=== PATIENT | male | born 1990 | race Caucasian/White ===

== ENCOUNTER 2018-02-11 14:03 | Emergency (ER) | payer BC, OTHER ==
[~2018-02-11] VITALS: Ht 188 cm; Wt 105.0 kg
[~2018-02-11 14:03] MED LIST: ARIP1TAB46 PO; COZA50TA PO; FLUO20TA20 PO; MOBI15TA PO
[2018-02-11 14:08] VITALS: PULSE 83; RESP 22; TEMP 97.4; O2SAT 99
[2018-02-11 14:57] LABS: AUTOMATED NEUTROPHIL # 6.1 TH/MM3 (1.8-7.7); BASOPHIL % 0.4 % (0.0-2.0); EOSINOPHIL # 0.1 TH/MM3 (0-0.4); EOSINOPHIL % 1.1 % (0.0-4.0); HEMATOCRIT 40.8 % (39.0-51.0); HEMOGLOBIN 14.1 GM/DL (13.0-17.0); LYMPH % 32.4 % (9.0-44.0); LYMPHOCYTE # 3.3 TH/MM3 (1.0-4.8); MEAN CELL VOLUME 86.3 FL (80.0-100.0); MEAN CORPUSCULAR HEMOGLOBIN 29.9 PG (27.0-34.0); MEAN CORPUSCULAR HGB CONC 34.6 % (32.0-36.0); MEAN PLATELET VOLUME 7.8 FL (7.0-11.0); MONO % 7.2 % (0.0-8.0); MONOCYTE # 0.7 TH/MM3 (0-0.9); NEUT % 58.9 % (16.0-70.0); PLATELET COUNT 298 TH/MM3 (150-450); RED BLOOD COUNT 4.72 MIL/MM3 (4.50-5.90); RED CELL DISTRIBUTION WIDTH 12.9 % (11.6-17.2); WHITE BLOOD COUNT 10.3 TH/MM3 (4.0-11.0)
[2018-02-11 15:21] VITALS: BP_SYST 115; BP_SYST 120; BP_DIAS 76; BP_DIAS 81; PULSE 81; RESP 17; O2SAT 97
[2018-02-11 15:21] LABS: BICARBONATE 26.6 MEQ/L (21.0-32.0); BLOOD UREA NITROGEN 22 MG/DL (7-18); CALCIUM 9.3 MG/DL (8.5-10.1); CHLORIDE 104 MEQ/L (98-107); CREATININE 0.88 MG/DL (0.60-1.30); GLOMERULAR FILTRATION RATE 106 ML/MIN (>89); GLUCOSE,RANDOM 77 MG/DL (74-106); SODIUM (NA) 140 MEQ/L (136-145)
[2018-02-11] MEDS ORDERED: LOSA50TA PO (15:21)
[2018-02-11] MEDS ORDERED: CYMB30CA PO (15:21)
[2018-02-11 15:54] LABS: TROPONIN I LESS THAN 0.02 NG/ML (0.02-0.05)
--- NOTE | 2018-02-11 15:54 | RADRPT ---
EXAM DATE: 02/11/2018 3:51 PM EDT AGE/SEX: 27 years / Male INDICATIONS: Pressure in chest and short of breath since earlier today CLINICAL DATA: This is the patient's initial encounter. Patient reports that signs and symptoms have been present for 1 day and indicates a pain score of 8/10. MEDICAL/SURGICAL HISTORY: . Marfan Syndromepleurisy . rods in entire spine COMPARISON: No prior [facility] exams available for comparison. FINDINGS: PA and lateral views of the chest demonstrate the lungs to be symmetrically aerated withou t evidence of mass, infiltrate or effusion. The cardiomediastinal contours are unremarkable. There is evidence of previous thoracic spinal surgery. There is scoliosis with curvature of the upper thoraci c spine to the left. The bony structures and hardware appear to be grossly intact. CONCLUSION: No acute pulmonary infiltrates. Electronically signed by: Hamilton Calloway MD 02/11/2018 3:53 PM EDT
[2018-02-11] MEDS ORDERED: IOHEXOL 350 MG/ML 10 ML VIAL (for RAD DIAG) IVCONTRAST ONE (16:18)
--- NOTE | 2018-02-11 16:58 | PD ---
HPI Chief Complaint: Respiratory Symptoms Time Seen by Provider: 15:16 Travel History International Travel<30 days: No Contact w/Intl Traveler<30days: No Traveled to known affect area: No History of Present Illness HPI 27-year-old male that presents to the ED for evaluation of right-sided chest pain and shortness of breath. Patient has had this for since this morning. Per patient he woke up with the discomfort and shortness of breath. Per patient he does have a history of asthma as well as Marfan syndrome. Per patient does not feel like his asthma. He has had pain like this before and he was told that he had pleurisy. Mainly his family and himself are concerned about his Marfan syndrome causing the pain and the concern for aneurysm. Per patient the pain is not severe and is more like a pressure and it is uncomfortable. He denies any abdominal pain. No nausea or vomiting. No recent travel. No injuries. States that the discomfort is 7 out of 10. Gets worse with deep breaths. Allergies to different medications. Has not seen anybody for this. Nothing alleviates the pain. PFSH Past Medical History ADHD: No Asthma: Yes Autoimmune Disease: No Blood Disorders: No Weight (Kg): 3 Anxiety: Yes Depression: Yes Heart Rhythm Problems: No Cancer: No Cardiomyopathy: Yes Cardiovascular Problems: Yes (HTN) High Cholesterol: No Chemotherapy: No Chest Pain: Yes Congestive Heart Failure: No COPD: No Diabetes: No Diminished Hearing: No Endocrine: No Gastrointestinal Disorders: Yes (GASTROPARESIS) Genitourinary: No Headaches: Yes Hypertension: Yes Immune Disorder: No Implanted Vascular Access Dvce: Yes Musculoskeletal: Yes (MARFANS SYNDRONE) Neurologic: Yes (DURALECTASIA) Psychiatric: Yes (depression) Reproductive: No Immunizations Current: Yes Migraines: No Radiation Therapy: No Seizures: No Sleep Apnea: Yes (occasionally wears Bi PAP) Thyroid Disease: No Ulcer: No Tetanus Vaccination: < 5 Years Influenza Vaccination: No Past Surgical History Appendectomy: No Body Medical Devices: spinal rods Section: No Cholecystectomy: No Neurologic Surgery: Yes (SPINAL FUSION X2) Thoracic Surgery: Yes (RIB CAGE SURGERY) Other Surgery: Yes (RIGHT ARM) Social History Alcohol Use: Yes (OCCASIONALLY) Tobacco Use: No Substance Use: No Allergies-Medications (Allergen,Severity, Reaction): Coded Allergies: lidocaine (Unverified Allergy, Severe, HIVES, 02/11/18) codeine (Unverified Adverse Reaction, Severe, PSYCHOSIS , 02/11/18) dicyclomine (Unverified Adverse Reaction, Severe, Hallucinations, 02/11/18) metoclopramide (Unverified Adverse Reaction, Severe, PARANOIA IV ONLY, ) Reported Meds & Prescriptions Reported Meds & Active Scripts Active Azithromycin 250 Mg Tab 250 Mg PO DIRECTED Take 2 tabs (500 mg) on day 1 then 1 tab daily x [address] (Diclofenac Sodium) 75 Mg Tabdr 75 Mg PO BID PRN Reported Losartan (Losartan Potassium) 50 Mg Tab 50 Mg PO DAILY Cymbalta DR (Duloxetine HCl) 30 Mg Capdr 90 Mg PO DAILY Review of Systems Except as stated in HPI: all other systems reviewed are Neg Physical Exam Narrative GENERAL: SKIN: Warm and dry. HEAD: Atraumatic. Normocephalic. EYES: Pupils equal and round. No scleral icterus. No injection or drainage. ENT: No nasal bleeding or discharge. Mucous membranes pink and moist. Tongue is midline. No uvula deviation. NECK: Trachea midline. No JVD. CARDIOVASCULAR: Regular rate and rhythm. No murmurs, S3, S4. RESPIRATORY: No accessory muscle use. Clear to auscultation. Breath sounds equal bilaterally. GASTROINTESTINAL: Abdomen soft, non-tender, nondistended. Hepatic and splenic margins not palpable. MUSCULOSKELETAL: Extremities without clubbing, cyanosis, or edema. No obvious deformities. Full range of motion of the upper and lower extremities bilaterally. 2+ pulses bilaterally. NEUROLOGICAL: Awake and alert. No obvious cranial nerve deficits. Motor grossly within normal limits. Five out of 5 muscle strength in the arms and legs. Normal speech. PSYCHIATRIC: Appropriate mood and affect; insight and judgment normal. Data Data Last Documented VS Vital Signs Date Time Temp Pulse Resp B/P (MAP) Pulse Ox O2 Delivery O2 Flow Rate FiO2 02/11/18 17:24 78 17 126/88 (101) 98 Room Air 02/11/18 14:08 97.4 Orders Orders Electrocardiogram (02/11/18 14:17) Complete Blood Count With Diff (02/11/18 14:17) Basic Metabolic Panel (Bmp) (02/11/18 14:17) Chest, Pa & Lat (02/11/18 14:17) Ckmb (Isoenzyme) Profile (02/11/18 14:26) Troponin I (02/11/18 14:26) Cta Thor Abd Aorta W Iv C W3d (02/11/18 ) Ed Discharge Order (02/11/18 17:38) Labs Laboratory Tests Test 02/11/18 14:26 White Blood Count 10.3 TH/MM3 Red Blood Count 4.72 MIL/MM3 Hemoglobin 14.1 GM/DL Hematocrit 40.8 % Mean Corpuscular Volume 86.3 FL Mean Corpuscular Hemoglobin 29.9 PG Mean Corpuscular Hemoglobin Concent 34.6 % Red Cell Distribution Width 12.9 % Platelet Count 298 TH/MM3 Mean Platelet Volume 7.8 FL Neutrophils (%) (Auto) 58.9 % Lymphocytes (%) (Auto) 32.4 % Monocytes (%) (Auto) 7.2 % Eosinophils (%) (Auto) 1.1 % Basophils (%) (Auto) 0.4 % Neutrophils # (Auto) 6.1 TH/MM3 Lymphocytes # (Auto) 3.3 TH/MM3 Monocytes # (Auto) 0.7 TH/MM3 Eosinophils # (Auto) 0.1 TH/MM3 Basophils # (Auto) 0.0 TH/MM3 CBC Comment DIFF FINAL Differential Comment Blood Urea Nitrogen 22 MG/DL Creatinine 0.88 MG/DL Random Glucose 77 MG/DL Calcium Level 9.3 MG/DL Sodium Level 140 MEQ/L Potassium Level 3.6 MEQ/L Chloride Level 104 MEQ/L Carbon Dioxide Level 26.6 MEQ/L Anion Gap 9 MEQ/L Estimat Glomerular Filtration Rate 106 ML/MIN Total Creatine Kinase 85 U/L Troponin I LESS THAN 0.02 NG/ML MDM Medical Decision Making Medical Screen Exam Complete: Yes Emergency Medical Condition: Yes Medical Record Reviewed: Yes Interpretation(s) EKG shows sinus bradycardia but no sign of acute ischemia and arrhythmia read by me and attending. Troponin and CK-MB negative. CBC & BMP Diagram 02/11/18 14:26 Calcium Level 9.3 Last Impressions Chest X-Ray 02/11/18 1417 Signed Impressions: CONCLUSION: No acute pulmonary infiltrates. Aorta CTA 02/11/18 0000 Signed Impressions: CONCLUSION: aorta CTA negative Differential Diagnosis Chest pain versus atypical chest pain versus aneurysm versus PE versus pleurisy versus ACS Narrative Course 27-year-old male that presents to the ED for evaluation of right-sided chest pain. Patient was properly examined and was found to have signs and symptoms concerning for significant disease. Patient does have a history of Marfan syndrome and there is concern for aneurysm secondary to the patient's symptoms. CTA and labs were ordered. My attending Dr. Rubi agrees with this. Labs and imaging show essentially unremarkable disease. Patient was reassured. Likely pleurisy. Per patient he feels similar to his previous episode. My attending doctor who recommends trial of anti-inflammatories and follow-up outpatient. I added azithromycin to his prescription to cover for bacterial infection although I told the family to not use unless his symptoms worsen. Patient understands reasons to come back. Follow-up with PCP. See ED if worsening symptoms. Diagnosis Primary Impression: Pleurisy Patient Instructions: General Instructions Additional Instructions: Take medication as prescribed. Follow-up with PCP. See ED if worsening symptoms. Ice or warm compresses. Take it easy for the next couple days. Med/Other Pt SpecificInfo: Prescription(s) given Scripts Azithromycin (Azithromycin) 250 Mg Tab 250 MG PO DIRECTED for Infection, #6 TAB 0 Refills Take 2 tabs (500 mg) on day 1 then 1 tab daily x 4 days. Prov: Alla Rubi MD 02/11/18 Diclofenac Sodium (Diclofenac Sodium ) 75 Mg Tabdr 75 MG PO BID Y for PAIN SCALE 1 TO 10, #20 TAB 0 Refills Prov: Alla Rubi MD 02/11/18 Disposition: 01 DISCHARGE HOME Condition: Stable Trino Trimble February 11, 2018 16:57
[2018-02-11 17:24] VITALS: BP 126/88; PULSE 78; RESP 17; O2SAT 98
--- NOTE | 2018-02-11 17:27 | RADRPT ---
EXAM DATE: 02/11/2018 5:08 PM EDT AGE/SEX: 27 years / Male INDICATIONS: Shortness of breath and chest pressure. CLINICAL DATA: This is the patient's initial encounter. Patient reports that signs and symptoms have been present for 1 day and indicates a pain score of 2/10. MEDICAL/SURGICAL HISTORY: Hypertension. Asthma. Marfans syndrome . Scoliosis surgery RADIATION DOSE: 17.10 CTDI (mGy) COMPARISON: No prior [facility] exams available for comparison. TECHNIQUE: Volumetric scanning was performed using a multi-row detector CT scanner during bolus infu maulik of 80 ml Omnipaque 350 (iohexol) nonionic water-soluble contrast as a single exam dose. The da ta was post processed with a variety of visualization algorithms including full volume maximum intens ity projection, multi-planar sliding thin slab reformation, curved planar reformation, and surface re ndering techniques. Using automated exposure control and adjustment of the mA and/or kV according to patient size, radiation dose was kept as low as reasonably achievable to obtain optimal diagnostic q uality images. FINDINGS: LUNGS: There is no consolidation or pneumothorax. No concerning pulmonary nodule is visualized. No pleural fluid is present. MEDIASTINUM: No abnormally enlarged lymph nodes by CT criteria. No axillary or hilar abnormalities a re identified. ABDOMEN: The liver and spleen are free of focal defects. The gallbladder and pancreas demonstrate no abnormality. The adrenal glands are normal. The kidneys demonstrate no evidence of solid renal mass or hydronephrosis. No free fluid or abdominal masses are identified. No para-aortic adenopathy is see n. PELVIS: No evidence of free fluid or pelvic mass. No abnormally enlarged inguinal or retroperitoneal lymph nodes are present. The bladder is unremarkable. THORACIC AORTA: Aortic root is upper limits of normal diameter. The remainder of the thoracic aorta is unremarkable with no evidence of stenosis, aneurysm or dissection. The arch vessels are normal in appearance with classical anatomy. ABDOMINAL AORTA: The aorta is normal in caliber without aneurysm or dissection. The renal arteries are patent bilaterally. The proximal celiac and superior mesenteric arteries are patent and normal i n diameter. PELVIC VESSELS: The internal iliac and external iliac vessels are patent without aneurysm or stenosi s. CONCLUSION: No acute vascular findings Electronically signed by: Earle Phillips MD 02/11/2018 5:25 PM EDT
[2018-02-11] MEDS ORDERED: AZIT250T3 PO (17:42)
[2018-02-11] MEDS ORDERED: DICL75TA PO (17:42)
--- NOTE | 2018-02-11 18:56 | EKG ---
Date Performed: 02/11/2018 Time Performed: 14:24:56 PTAGE: 27 years EKG: Sinus rhythm LEFT ATRIAL ENLARGEMENT ABNORMAL ECG No significant change from prior electrocardiogram. PREVIOUS TRACING : 05/10/2015 22.46 DOCTOR: Mp Cheung Interpretating Date/Time 02/11/2018 18:55:07
== END 2018-02-11 18:05 | disposition home or self-care (01) ==
LOC: NEPC 14:03
DX: R09.1 Pleurisy (principal); Q87.40 Marfan syndrome, unspecified
CPT/HCPCS: 71046; 71275; 74174; 80048; 82550; 84484; 85025; 93005; Q9967